=== PATIENT | female | born 1990 | race Caucasian/White ===

== ENCOUNTER 2022-05-03 09:29 | Outpatient (CLI) | payer SELFPAY ==
--- NOTE | 2022-05-03 09:45 | CRLHL7_ITS ---
For Patients: As a result of the Century Cures Act, medical imaging exams and procedure reports are released immediately into your electronic medical record. You may view this report before your referring provider. If you have questions, please contact your health care provider. INDICATION: Evaluate anatomy. COMPARISON: 02/11/2022 TECHNIQUE: Real time jordan scale imaging of the fetus was performed as well as color Doppler analysis of the umbilical vessels. FINDINGS: Sonographic imaging demonstrates a single living intrauterine gestation. Fetus demonstrates a regular cardiac rate of 146 beats per minute. Fetus has a variable position. The placenta lies posteriorly without evidence of placenta previa. The edge of the placenta is located 3.3 cm from the internal cervical os. Amniotic fluid volume appears normal. Single deepest vertical pocket: 4.3 cm. The cervix is closed and measures 3.4 cm in length. The composite ultrasound gestational age is calculated at 20 weeks 1 day with an estimated sonographic due date of 09/19/2022. The estimated weight is 335 grams which lies at the 45th %. The following biometric measurements were obtained: Biparietal diameter: 4.7 cm/20 weeks 1 day 50th% Head circumference: 17.6 cm/20 weeks 1 day 41st% Abdominal circumference: 14.8 cm/20 weeks 1 day 43rd% Femur length: 3.3 cm/20 weeks 1 day 44th% The HC/AC ratio measures: 1.19 range (1.07-1.25) On anatomic survey, there is a normal appearance of the cerebral ventricles, cavum septi pellucidi, cisterna magna and cerebellum. The facial profile appear normal. The nose and lips are difficult to visualize due to position. The cervical, thoracic and lumbar spine are well visualized and appear normal. There is a normal four-chamber heart view and the left and right ventricular outflow tracts appear normal. The diaphragm and stomach appear normal. The kidneys and bladder also appear normal. There is a normal three-vessel cord and eccentric cord insertion site. The four extremities appear normal. IMPRESSION: Concordance of clinical and sonographic dating. No intrinsic abnormalities noted on anatomic survey although the nose and lips are not well evaluated. Short-term follow-up recommended. Dictated by Franc Hung MD @ 05/03/2022 11:16:11 AM (Electronically Signed)
== END 2022-05-03 09:30 | disposition home or self-care (01) ==
LOC: US 09:30
PROVIDERS: Visit Provider Advanced Practice Midwife
DX: Z34.92 Encounter for supervision of normal pregnancy, unspecified, second trimester (principal); Z3A.20 20 weeks gestation of pregnancy
CPT/HCPCS: 76805

== ENCOUNTER 2022-05-04 15:50 | Outpatient (CLI) | payer SELFPAY ==
--- NOTE | 2022-05-04 16:00 | CRLHL7_ITS ---
For Patients: As a result of the Century Cures Act, medical imaging exams and procedure reports are released immediately into your electronic medical record. You may view this report before your referring provider. If you have questions, please contact your health care provider. INDICATION: NOSE/LIPS NOT WELL VISUALIZED ON ANATOMY EXAM COMPARISON: 05/03/2022 TECHNIQUE: Real time jordan scale imaging of the fetus was performed. FINDINGS: Sonographic imaging demonstrates a single living intrauterine gestation. Fetus demonstrates a regular cardiac rate of 150 beats per minute. Fetus has a transverse position. The placenta lies posteriorly. Amniotic fluid volume appears normal. Single deepest vertical pocket: 4.3 cm. Normal nose and lips. IMPRESSION: Normal nose and lips. Dictated by Franc Hung MD @ 05/05/2022 9:00:29 AM (Electronically Signed)
== END 2022-05-04 15:51 | disposition home or self-care (01) ==
LOC: US 15:51
PROVIDERS: Visit Provider Advanced Practice Midwife
DX: O35.8XX0 Maternal care for other (suspected) fetal abnormality and damage, not applicable or unspecified (principal); Z3A.00 Weeks of gestation of pregnancy not specified; Z36.2 Encounter for other antenatal screening follow-up
CPT/HCPCS: 76815

== ENCOUNTER 2022-06-29 09:02 | Outpatient (CLI) | payer SELFPAY ==
[2022-07-01 00:53] LABS: Rapid Plasma Reagin (RPR) Non Reactive (Non Reactive)
== END 2022-06-29 09:03 | disposition home or self-care (01) ==
PROVIDERS: Visit Provider Advanced Practice Midwife
DX: Z34.83 Encounter for supervision of other normal pregnancy, third trimester (principal); Z3A.28 28 weeks gestation of pregnancy
CPT/HCPCS: 86592

== ENCOUNTER 2022-07-28 15:01 | Outpatient (CLI) | payer SELFPAY ==
[2022-07-28 15:12] VITALS: BP 126/66; PULSE 88
[2022-07-28 15:13] VITALS: RESP 16; TEMP 36.7
[2022-07-28 16:08] LABS: Amnisure Rom* Negative
--- NOTE | 2022-07-28 17:18 | PC.OBNST ---
NST Note NST Note Start: 07/28/22 15:06 Freq: ONCE Status: Active Protocol: Document 07/28/22 17:12 ALEKSANDER (Rec: 07/28/22 17:14 ALEKSANDER [id number]) NST Note 3 Para (# of births) 2 EDC 09/19/22 Gestational Age In Weeks & Days 32 Weeks & 3 Days Patient Presented with Complaint(s) of Leaking fluid Reactive Yes Appropriate for Gestational Age Yes RN Alejo RN Date 07/28/22 Reactive Yes Appropriate for Gestational Age Yes RUPERT Tarango RN Date 07/28/22 OB NST charge Yes Complete NST Note via Write Note Yes The provider's electronic signature indicates the NST is reactive/appropriate for gestational age. *Note to provider: If an addendum is required, open the patient's chart and click on the note under the Nurse/Allied Health tab.
== END 2022-07-28 16:20 | disposition home or self-care (01) ==
LOC: OB OUT 15:01 → OB 15:03
PROVIDERS: Visit Provider Advanced Practice Midwife
DX: Z34.83 Encounter for supervision of other normal pregnancy, third trimester (principal); Z3A.32 32 weeks gestation of pregnancy
CPT/HCPCS: 59025; 84112; 99213

== ENCOUNTER 2022-08-24 14:24 | Outpatient (CLI) | payer SELFPAY ==
[2022-08-25 16:11] LABS: Strep B DNA Probe NEGATIVE (Negative)
[2022-08-26 14:23] LABS: Strep B Pen/Amox Allergy No
== END 2022-08-24 14:25 | disposition home or self-care (01) ==
PROVIDERS: Visit Provider Advanced Practice Midwife
DX: Z34.80 Encounter for supervision of other normal pregnancy, unspecified trimester (principal)
CPT/HCPCS: 87081; 87653

== ENCOUNTER 2022-09-21 06:59 | Inpatient (IN) | payer SELFPAY ==
[2022-09-21] VITALS (24 sets, daily range): BP systolic 113–139; BP diastolic 58–83; PULSE 64–101; RESP 16–18; TEMP 36.3–36.8; O2SAT 83–98; BMI 32.2
[2022-09-21 08:47] LABS: SARS PCR* Negative SARS-CoV-2 (Negative)
--- NOTE | 2022-09-21 09:53 | P.LDBA_ITS ---
Subjective History of Present Illness Narrative: Patient is being admitted to Labor and Delivery for induction of labor for history of shoulder dystocia. She is a 32 year old at 40 2/7 weeks gestation. Pt present and supported by , was seen in clinic yesterday and discussed plan for labor management/induction. Pt would prefer AROM as method of induction. Her full history and physical was dictated by Mee Waldron CNM on 09/05/22. Please see this for details. OB PROBLEM LIST 1. Precipitous labors, silent contractions only feels them at very end 2. Shoulder dystocia during labor and delivery 01/31/2020: 30 seconds, resolved with McRobert's and suprapubic pressure. 3. History of Gestational diabetes w/ 2nd Planning early GCT at 16 weeks, doing home glucose monitoring: WNL Plans home glucose monitoring for 28 week gct: WNL (all numbers normal), completed at 26 weeks 4. Remote hx of abnormal pap, LSIL, HPV+ w/ colposcopy, normal since 5. Mouth and nose not well visualized on US Follow-up US normal Tdap: 07/13/22 Flu: Covid:2020 OB - Problem Based A/P Additional Plan (1) Encounter for induction of labor: Status: Acute Plan ASSESSMENT:? 32 yo at 40 2/7 weeks gestation? complicated by:?history of shoulder dystocia Labor type: Induced? Category 1 FHR pattern.?? Labor complicated by:none GBS negative? ? PLAN:? 1. Routine intrapartum cares as ordered. Induction started with AROM, plan expectant management?Discussed use of pitocin only if labor not progressing. 2. Monitoring per policy, intermittent? 3. Planning unmedicated . Candidate for analgesia of choice if desired. 4. Patient encouraged to reposition and ambulate to promote physiologic labor and .? 5. Anticipate ? Delivery/Labor/Induction Plan Plan: induction Induction method: AROM OB Exam Physical Exam Vital signs: Temp Pulse Resp BP Pulse Ox 97.9 F 87 18 126/58 L 97 09/21/22 09:23 09/21/22 09:23 09/21/22 09:23 09/21/22 09:23 09/21/22 09:23 Narrative: Vitals Reviewed? Psychiatric:? Alert and oriented x3? HEENT:? Normocephalic, atraumatic? Neck:? Supple?? Lungs:? Clear to auscultation bilaterally? Heart:? Regular rate and rhythm, no murmur, rub or gallop? Abdomen:? Soft, nontender, and gravid. Vertex by Raymond's, confirmed with cervical exam.? Extremities:? No edema or erythema? Detailed Labor and Delivery Exam Patient Gravid: Yes Dilation (cm): 3 Effacement (%): 50 Cervix position: mid Consistency: soft Contraction Frequency: occasional Tachysystole: No Contraction intensity: Mild Fetus (Single) Station: -2 Amniotic Membrane Status: AROM (per induction plan) Amniotic Membrane Fluid Description: Clear Heart Rate Baseline: 125 Monitor Accelerations: Present Monitor Decelerations: None Shelter Variability: Moderate (6-25)
--- NOTE | 2022-09-21 14:50 | P.OBPN_ITS ---
Subjective Time Seen by Provider: 14:41 Date Seen: 09/21/22 Narrative: Jeni Mauricio is coping well with labor pain/contractions. She is currently being supported by her partner. Laboring well with ambulation, tub, and rest. She is requesting a cervical exam per RN. Objective Vital Signs: Last Vital Signs Temp 98 F 09/21/22 18:02 Pulse 83 09/21/22 18:47 Resp 18 09/21/22 18:02 BP 116/71 09/21/22 18:47 Pulse Ox 98 09/21/22 18:15 Pelvic Exam Comments: Deferred Contractions Monitor mode: Palpation Contraction Frequency: 5 Contraction pattern: Regular Contraction intensity: Moderate Assessment Amniotic Membrane Status: AROM (per induction plan) Heart Rate Baseline: 125 Maternal Status: Coping well Plan Plan: ASSESSMENT:? 32 yo at 40 2/7 weeks gestation? complicated by:?history of shoulder dystocia Labor type: Induced, early labor Reassuring FHT by intermittent monitoring? Labor complicated by:none GBS negative? ? PLAN:? 1. Routine intrapartum cares as ordered. Continue with expectant management. Reviewed cervical exam risk/benefit but that it would not change our plan at this time. Patient then declined cervical exam. Reassurance provided the progr ession of contractions/labor has been normal. 2. Monitoring per policy,?intermittent? 3. Planning unmedicated . Candidate for analgesia of choice if desired. 4. Patient encouraged to reposition and ambulate to promote physiologic labor and .? 5. Anticipate ?
--- NOTE | 2022-09-21 18:40 | PM.OBPRCVD ---
Procedure Delivery date: 09/21/22 Procedure Done: Global Intrapartal Events: Labor Induction Induction method: AROM Delivery monitor: external FHT (Intermittent monitoring) and external uterine Route of delivery: Laceration description: Perineal - 1st Degree Delivery repair: Vicryl Estimated blood loss (mL): 100 Anesthesia type: None Disposition: floor Narrative: The patient is a 32 year-old G3 now P3 admitted on 09/21/2022 at 40 Weeks, 2 Days gestation for IOL for hx of shoulder dystocia.? Cervical exam on admission was 3 cm. Her labor was induced with AROM that occurred at 0812 with clear fluid. ? Labor Analgesia:? None, local for repair ? Pitocin:? No ? Labor onset:? 09/21/2022 1330 ? Complete:? 1735 ? Pushing:? 1736 ? heart tones during second stage were reassuring via intermittent monitoring during pushing. ? Patient was admitted for IOL by AROM. She progressed normally to complete. Patient was complete at 1735 and pushing at 1736. of a viable male at 1754 in Semi-high fowlers in bed. Vertex delivered OA. No nuchal cord or shoulder. Body delivered easily and without incident. passed to mothers abdomen with a vigorous cry, short cord noted. Cord was clamped and cut at > 3 minutes. APGARS were 7 at one minute and 8 at five minutes respectively. Mouth was bulb suctioned. Intact placenta with a 3 vessel cord delivered spontaneously at 1801. Fundus firm. 1st degree identified and repaired in typical fashion. QBL 100 cc. Mother and baby stable; mother plans to breastfeed. Infant weight pending. ? Placenta delivered spontaneously and complete at 1801 with a 3 vessel cord. Upon inspection, marginal velamentous cord insertion noted. Vessel of cord ran along amniotic sac, no concerning FHT during delivery. ? Mother and were stable after delivery. ? Lacerations:? 1st, repaired with 3-0 vicryl. ? Blood loss: 100 mL. Blood loss measurement type: QBL ? Sponge and needles counts are correct. Infant Gender: Male presentation: vertex Placental Delivery Description: Spontaneous Cord Description: 3 Vessels OB Vag Delivery Procedures Additional Procedures ECV: No Cook Catheter Insertion: No NST: No D&C: No Laceration Repair: Yes Tubal Ligation : No Other: No
[2022-09-21] MEDS: IBUPROFEN 600 MG TABLET PO (20:01)
[2022-09-21] MEDS: OXYTOCIN 10 UNIT/ML INJ IM (21:33)
[2022-09-22 03:17] VITALS: BP 116/76; RESP 16; TEMP 36.5; O2SAT 95
[2022-09-22] MEDS: IBUPROFEN 600 MG TABLET PO ×2 (03:19→10:11)
[2022-09-22 06:17] VITALS: BP 116/74; PULSE 82; RESP 16; TEMP 36.5; O2SAT 96
--- NOTE | 2022-09-22 07:33 | P.DS_ITS ---
DS: Providers Provider Time Seen by Provider: 07:25 Date Seen: 09/22/22 Date of admission: 09/21/22 06:59 Primary care physician: Not a Local Provider Admitting Clinician: Fatoumata Savage CNM Attending Physician on discharge: Nuvia Waldron CNM Date of Discharge: 09/22/22 DS: Diagnosis Discharge Diagnosis (1) state: Status: Acute (2) Lactating mother: Status: Acute Exam Narrative: Exam Narrative: Objective: VSS, afebrile GENERAL APPEARANCE: ?normal affect, alert, no distress MOOD: ?appropriate HEENT: normocephalic, neck supple, full ROM CHEST: ?Symmetrical chest wall movement. ?Normal respiratory effort. ?Clear to auscultation HEART: ?regular rate and rhythm ABDOMEN: ?soft, non-tender. Uterine fundus is firm, 1 below Umbilicus, Midline and is appropriate for the stage of recovery. ? PERINEUM: ?Deferred, per pt 1st degree laceration healing well, no pain or concerns EXTREMITIES: ?normal and no edema Const: Vital Signs, click to edit/add: Vital Signs - 24 hr 09/21/22 09:23 09/21/22 09:23 09/21/22 10:20 Temperature 97.9 F 97.9 F Pulse Rate 87 Pulse Rate [Pulse Oximeter] Respiratory Rate 18 Blood Pressure 126/58 L Blood Pressure [Le ft Arm] Pulse [facility] 12:34 09/21/22 12:35 09/21/22 12:34 Temperature 97.8 F Pulse Rate 86 Pulse Rate [Pulse Oximeter] Respiratory Rate 16 Blood Pressure 119/75 Blood Pressure [Le ft Arm] Pulse Oximetry 97 [facility] 13:28 09/21/22 14:30 09/21/22 15:33 Temperature 97.6 F 97.8 F Pulse Rate 85 Pulse Rate [Pulse Oximeter] Respiratory Rate Blood Pressure 121/63 Blood Pressure [Le ft Arm] Pulse Oximetry 96 [facility] 15:33 09/21/22 16:30 09/21/22 18:02 Temperature 98 F 97.4 F L Pulse Rate 88 Pulse Rate [Pulse Oximeter] Respiratory Rate 18 Blood Pressure 133/83 Blood Pressure [Le ft Arm] Pulse Oximetry [facility] 18:15 09/21/22 18:18 09/21/22 18:32 Temperature Pulse Rate 90 68 Pulse Rate [Pulse Oximeter] Respiratory Rate Blood Pressure 139/64 113/58 L Blood Pressure [Le ft Arm] Pulse Oximetry 98 Oxygen Delivery Me od 09/21/22 18:02 09/21/22 18:47 09/21/22 19:01 Temperature 98 F Pulse Rate 83 80 Pulse Rate [Pulse Oximeter] Respiratory Rate 18 Blood Pressure 116/71 134/68 Blood Pressure [Le ft Arm] Pulse Oximetry Oxygen Delivery Me od 09/21/22 19:32 09/21/22 19:47 09/21/22 20:01 Temperature Pulse Rate 74 84 85 Pulse Rate [Pulse Oximeter] Respiratory Rate Blood Pressure 124/59 L 121/62 121/70 Blood Pressure [Le ft Arm] Pulse Oximetry [facility] 20:01 09/21/22 18:02 09/21/22 18:18 Temperature 98.2 F 98.0 F Pulse Rate Pulse Rate [Pulse Oximeter] 64 90 Respiratory Rate 16 16 16 Blood Pressure Blood Pressure [Le ft Arm] 133/83 139/64 Pulse Oximetry 98 [facility] 18:32 09/21/22 18:48 09/21/22 19:02 Temperature Pulse Rate Pulse Rate [Pulse Oximeter] 68 83 80 Respiratory Rate 16 18 18 Blood Pressure Blood Pressure [Le ft Arm] 113/58 L 116/71 134/68 Pulse Oximetry 98 98 98 [facility] 19:16 09/21/22 23:22 09/22/22 03:17 Temperature 98.2 F 97.7 F Pulse Rate Pulse Rate [Pulse Oximeter] 94 Respiratory Rate 16 16 16 Blood Pressure Blood Pressure [Le ft Arm] 119/78 116/76 Pulse Oximetry 98 96 95 Oxygen Delivery Me od Room Air Room Air 09/22/22 06:17 Temperature 97.7 F Pulse Rate Pulse Rate [Pulse Oximeter] 82 Respiratory Rate 16 Blood Pressure Blood Pressure [Le ft Arm] 116/74 Pulse Oximetry 96 Oxygen Delivery Me od Room Air Documenting provider has reviewed patient's vital signs: yes OB - DS: Summary Hospital Course Hospital Course: Subjective: Luly is a 32 year old G 3 P 3 at 40 2/7 weeks gestation that was admitted to the Center on 09/21/22 for IOL r/t hx of shoulder dystocia. She had an uncomplicated vaginal delivery. The patient feels well. ?The pain is well controlled with current medications. ?She has no new complaints. ?She is breast feeding and reports things are going well.? the patient has done well.? Vitals have been stable.? She has remained afebrile.? Has a good appetite, is tolerating a general diet. ?She is voiding without difficulty.? She is passing gas and has not had a bowel movement.? She is ambulating and denies any dizziness.? Has small amount of rubra lochia. ?She is planning condoms then vasectomy for prevention. Assessment: G3 now P3 Lactating Mother plan: Discharge home with baby. Follow up in 2 weeks and 6 weeks. , may follow up with if needed Peripartum Data Infant delivery method: Vaginal Laceration description: Periurethral - 1st Degree complications: none Infant Gender: Male Discharge Plan: Home Status at Discharge Functional status at discharge: independent ambulation Overall status at discharge: patient is progressing back to baseline Time Spent with Patient Time attestation: Total time spent providing and/or coordinating discharge services: Time spent: Less than 30 minutes Discharge Plan Discharge Disposition: Home, Self-Care Date of Admission: 09/21/22 06:59 Attending Provider on Discharge: Nuvia Waldron Primary Care Provider: Provider,Not a Local Condition: Stable Anticipated Discharge Date/Time: 09/22/22 18:41 Discharge Medications: New docusate sodium 100 mg Capsule 100 mg PO DAILY Qty: 100 0RF Continued [id number] 3-fat com #1 [id number] mg capsule 1 cap PO DAILY Discharge Orders: Discharge Order (Routine); Ordered 09/22/22 Ordered By: Nuvia Waldron Consulting provider completed their portion of the discharge: Yes Patient Education: OB Over the Counter Medication Information, OB Vaginal/Breast Feeding Activity Level: No Restrictions and Activity as Tolerated Discharge Diet: Regular Follow Up Appointments: Provider,Not a Local [Primary Care Provider] - Forms: [employer] Info Instructions Discharge Comments: Patient to schedule 2 week and 6 week visits.
[2022-09-22 08:00] VITALS: BP 111/60; PULSE 82; RESP 16; TEMP 36.8; O2SAT 97
[2022-09-22] MEDS: DOCUSATE SODIUM 100 MG CAPSULE PO (10:13)
[2022-09-22 12:20] VITALS: BP 126/74; PULSE 84; RESP 16; TEMP 36.7; O2SAT 96
== END 2022-09-22 20:57 | disposition home or self-care (01) | DRG 807 ==
PROVIDERS: Admitting Provider Advanced Practice Midwife; Visit Provider Advanced Practice Midwife
DX: O70.0 First degree perineal laceration during delivery (principal); Z37.0 Single live birth; Z3A.40 40 weeks gestation of pregnancy
CPT/HCPCS: 87635; A9270; J2590

== ENCOUNTER 2024-03-25 14:10 | Outpatient (CLI) | payer OTHER, SELFPAY | END 2024-03-25 14:11 | disposition home or self-care (01) | LOC: NFLDREF 14:12 | PROVIDERS: PCP Registered Nurse; Visit Provider Obstetrics & Gynecology | DX: Z01.419 Encounter for gynecological examination (general) (routine) without abnormal findings (principal); Z13.6 Encounter for screening for cardiovascular disorders; Z13.1 Encounter for screening for diabetes mellitus | CPT/HCPCS: 80061 ==